=== PATIENT | male | born 1955 | race Caucasian/White ===

== ENCOUNTER 2018-06-27 18:30 | Emergency (ER) | payer OTHER ==
[2018-06-27] MEDS ORDERED: Ketorolac 30 MG/ML SDV IVPUSH ONE (19:06)
[2018-06-27] MEDS ORDERED: Sodium Chloride 0.9% 1,000 ML IV ONE (19:06)
--- NOTE | 2018-06-27 19:20 | EDM.PDOC ---
ED HPI GENERAL MEDICAL PROBLEM - General Chief Complaint: Flank Pain Stated Complaint: KIDNEY PAIN Time Seen by Provider: 06/27/18 19:05 Source of Information: Reports: Patient History Limitations: Reports: No Limitations - History of Present Illness INITIAL COMMENTS - FREE TEXT/NARRATIVE: The patient is a 62-year-old male with a history of prior ureteral lithiasis who presents with a chief complaint of right flank pain. The pain started suddenly today. There is no provoking factor. States that it is on his right flank area and is radiating to his right groin area. Pain was worse with urination. He did have some slight hematuria today. No nausea or vomiting. No fever. No dysuria. He took 400 mg of ibuprofen about 4 hours ago and the pain is now resolved. States it feels very similar to prior ureteral stones. 25 years ago she required lithotripsy, states that he has passed several stones since then without intervention. He is traveling, home is in [facility], he expects to be home and about 4 days. Treatments STICKER HAND: Reports: NSAIDS Right Flank Pain Score (Numeric/FACES): 5 - Related Data Allergies Allergy/AdvReac Type Severity Reaction Status Date / Time cephalexin [From Keflex] Allergy Hives Verified 06/27/18 18:42 Home Meds: Home Meds Acetaminophen/oxyCODONE [Percocet 325-5 MG] 1 each PO QID PRN #15 tab 06/27/18 [ Rx] Citalopram Hydrobromide [Celexa] 5 mg PO ASDIRECTED 06/27/18 [History] Ibuprofen 800 mg PO TID PRN #40 tablet 06/27/18 [Rx] Losartan [Cozaar] 50 mg PO DAILY 06/27/18 [History] Tamsulosin [Flomax] 0.4 mg PO DAILY #14 cap.er 06/27/18 [Rx] Past Medical History HEENT History: Reports: Hard of Hearing, Impaired Vision Cardiovascular History: Reports: Hypertension Genitourinary History: Reports: Renal Calculus Psychiatric History: Reports: Anxiety - Past Surgical History Male Surgical History: Reports: Kidney Stone Extraction, Lithotripsy ([facility]) Social & Family History - Tobacco Use Smoking Status *Q: Never Smoker - Caffeine Use Caffeine Use: Reports: Coffee - Recreational Drug Use Recreational Drug Use: No ED ROS GENERAL - Review of Systems Review Of Systems: See Below Constitutional: Denies: Fever HEENT: Reports: No Symptoms Respiratory: Denies: Shortness of Breath Cardiovascular: Denies: Chest Pain Endocrine: Reports: No Symptoms GI/Abdominal: Denies: Abdominal Pain, Vomiting : Reports: Flank Pain, Hematuria. Denies: Dysuria Musculoskeletal: Reports: No Symptoms Skin: Reports: No Symptoms Neurological: Reports: No Symptoms Psychiatric: Reports: No Symptoms ED EXAM, RENAL/ - Physical Exam Exam: See Below Exam Limited By: No Limitations General Appearance: Alert, WD/WN, No Apparent Distress Eye Exam: Bilateral Eye: Normal Inspection Ears: Normal External Exam Nose: Normal Inspection Throat/Mouth: Normal Inspection, Normal Voice, No Airway Compromise Head: Atraumatic, Normocephalic Neck: Normal Inspection Respiratory/Chest: No Respiratory Distress, Lungs Clear, Normal Breath Sounds, No Accessory Muscle Use Cardiovascular: Normal Peripheral Pulses, Regular Rate, Rhythm, No Murmur GI/Abdominal: Soft, Non-Tender, No Distention. No: Rebound Back Exam: Other (Minimal right-sided CVA tenderness) Neurological: Alert, Oriented, Normal Cognition, No Motor/Sensory Deficits Psychiatric: Normal Affect, Normal Mood Skin Exam: Warm, Dry, Intact, Normal Color, No Rash Course - Vital Signs Last Recorded V/S: Last Vital Signs Temp 36.8 C 06/27/18 18:37 Pulse 76 06/27/18 18:37 Resp 14 06/27/18 18:37 BP 175/93 H 06/27/18 18:37 Pulse Ox 98 06/27/18 18:37 - Orders/Labs/Meds Labs: Laboratory Tests 06/27/18 06/27/18 06/27/18 Range/Units 19:15 19:15 19:30 WBC 14.64 H (4.23-9.07) K/mm3 RBC 4.71 (4.63-6.08) M/mm3 Hgb 13.9 (13.7-17.5) gm/L Hct 40.8 (40.1-51.0) % MCV 86.6 (79.0-92.2) fl MCH 29.5 (25.7-32.2) pg MCHC 34.1 (32.2-35.5) g/dl RDW Std Deviation 43.0 (35.1-43.9) fL Plt Count 272 (163-337) K/mm3 MPV 10.4 (9.4-12.3) fl Neut % (Auto) 68.5 H (34.0-67.9) % Lymph % (Auto) 15.3 L (21.8-53.1) % [place] % (Auto) 11.9 (5.3-12.2) % Eos % (Auto) 3.5 (0.8-7.0) Baso % (Auto) 0.5 (0.1-1.2) % Neut # (Auto) 10.03 H (1.78-5.38) K/mm3 Lymph # (Auto) 2.24 (1.32-3.57) K/mm3 [place] # (Auto) 1.74 H (0.30-0.82) K/mm3 Eos # (Auto) 0.51 (0.04-0.54) K/mm3 Baso # (Auto) 0.07 (0.01-0.08) K/mm3 Manual Slide Review Normal smear Sodium 141 (136-145) mEq/L Potassium 3.8 (3.5-5.1) mEq/L Chloride 106 (98-107) mEq/L Carbon Dioxide 24 (21-32) mEq/L Anion Gap 14.8 (5-15) BUN 18 (7-18) mg/dL Creatinine 1.4 H (0.7-1.3) mg/dL Est Cr Clr Drug Dosing 58.51 mL/min Estimated GFR (MDRD) 51 (>60) mL/min BUN/Creatinine Ratio 12.9 L (14-18) Glucose 120 H (80-115) mg/dL Calcium 9.2 (8.5-10.1) mg/dL Total Bilirubin 0.3 (0.2-1.0) mg/dL AST 25 (15-37) U/L ALT 44 (16-63) U/L Alkaline Phosphatase 49 (46-116) U/L Total Protein 7.5 (6.4-8.2) g/dl Albumin 3.9 (3.4-5.0) g/dl Globulin 3.6 gm/dL Albumin/Globulin Ratio 1.1 (1-2) Urine Color Yellow (Yellow) Urine Appearance Clear (Clear) Urine pH 6.0 (5.0-8.0) Ur Specific [place] 1.025 (1.005-1.030) Urine Protein Trace H (Negative) Urine Glucose (UA) Negative (Negative) Urine Ketones Negative (Negative) Urine Occult Blood 2+ H (Negative) Urine Nitrite Negative (Negative) Urine Bilirubin Negative (Negative) Urine Urobilinogen 0.2 (0.2-1.0) Ur Leukocyte Esterase Trace H (Negative) Urine RBC 10-20 H (0-5) /hpf Urine WBC 0-5 (0-5) /hpf Ur Epithelial Cells 0-5 (0-5) /hpf Urine Bacteria Few (FEW) /hpf Urine Mucus Few (FEW) /hpf Meds: Medications Discontinued Medications Generic Name Dose Route Start Last Admin Trade Name Freq PRN Reason Stop Dose Admin Sodium Chloride 1,000 mls @ 1,000 mls/hr 06/27/18 19:06 06/27/18 19:26 Normal Saline IV 06/27/18 20:05 1,000 mls/hr ONETIME ONE Administration Ketorolac Tromethamine 30 mg 06/27/18 19:06 06/27/18 19:26 Toradol IVPUSH 06/27/18 19:07 30 mg ONETIME ONE Administration - Re-Assessments/Exams Free Text/Narrative Re-Assessment/Exam: 06/27/18 22:38 UA shows microscopic hematuria, no infection. Creatinine mildly elevated at 1.4 , baseline unknown. Patient feels much better. He's had no recurrence of his pain. I think it possible that he passed a stone. We'll provide pain medication prescription in case this is not the case. Encouraged him to follow up his creatinine result with his primary care provider. Discussed return precautions. Departure - Departure Time of Disposition: 20:09 Disposition: Home, Self-Care 01 Clinical Impression: Right flank pain - Discharge Information Prescriptions: Acetaminophen/oxyCODONE [Percocet 325-5 MG] 1 each PO QID PRN #15 tab PRN Reason: Pain Ibuprofen 800 mg PO TID PRN #40 tablet PRN Reason: Pain Tamsulosin [Flomax] 0.4 mg PO DAILY #14 cap.er Instructions: Flank Pain, Adult, [id number] Referrals: PCP,Not In Area [Primary Care Provider] - Forms: ED Department Discharge Additional Instructions: 1. Take ibuprofen for pain. Take oxycodone for severe pain. No driving while taking the oxycodone as it may cause sleepiness or confusion. 2. Drink plenty of fluids. 3. Follow up with your primary care provider when you return home. Your creatinine (measure of kidney function) is mildly elevated at 1.4. Your doctor may want to recheck it if that is higher than usual for you. 4. Return to the closest Emergency Department if you have severe pain, fever, vomiting without keeping liquids down, difficulty urinating, or other concerning symptoms.
== END 2018-06-27 20:25 | disposition home or self-care (01) ==
LOC: JD.ED 18:30
DX: R10.9 Unspecified abdominal pain (principal); R31.29 Other microscopic hematuria; R79.89 Other specified abnormal findings of blood chemistry; I10 Essential (primary) hypertension; Z88.1 Allergy status to other antibiotic agents
CPT/HCPCS: 36415; 80053; 81001; 85025; 96361; 96374; 99284; J1885; J7040